=== PATIENT | female | born 1985 | race Caucasian/White ===

== ENCOUNTER 2022-04-09 01:34 | Emergency (ER) | payer SELFPAY ==
[~2022-04-09] VITALS: Ht 170.2 cm; Wt 86.0 kg
[2022-04-09 01:39] VITALS: BP 145/84
[2022-04-09] MEDS ORDERED: KETOROLAC 60 MG/2 ML VIAL. IM ONE (02:15)
--- NOTE | 2022-04-09 02:25 | PHYS DOC ---
Past History Past Surgical History: Other Additional Past Surgical Histo: cryo Alcohol Use: None General Adult EDM: Chief Complaint: SHOUDLER HPI: HPI: Patient is a 36-year-old female coming in via EMS for left neck, shoulder, back, and rib pain. Patient states she woke up with it yesterday and has been gradually getting worse. Has taken some ibuprofen and helps alleviate the pain. Patient denies any heavy lifting or falls. Patient states that she was feeling short of breath due to the pain, states its feels like is making her chest tight. Review of Systems: Review of Systems: All other systems within normal limits except for as noted in the HPI Current Medications: Current Meds: Current Medications Medications (Trade) Dose Ordered Sig/Charles Start Time Stop Time Status Last Admin Dose Admin Ketorolac Tromethamine (Toradol Im) 60 mg 1X ONCE 04/09/22 02:15 04/09/22 02:16 DC Lorazepam (Ativan Inj) 2 mg 1X ONCE 04/09/22 02:15 04/09/22 02:16 DC Allergies: Allergies: Allergies Coded Allergies Type Severity Reaction Last Updated Verified latex Allergy Unknown 04/09/22 Yes Physical Exam: PE: Constitutional: Well developed, well nourished, no acute distress, non-toxic appearance. [] HENT: Normocephalic, atraumatic, bilateral external ears normal, nose normal. [] Eyes: PERRLA, conjunctiva normal, no discharge. [] Neck: No rigidity, supple, no stridor. Tenderness over left base of neck, no C-spine tenderness [] Cardiovascular: Regular rate and rhythm, brisk cap refill [] Lungs & Thorax: Non labored symmetric respirations, no tachypnea or respiratory distress [] Abdomen: Soft, nondistended. Skin: Warm, dry, no erythema, no rash. [] Back: Unremarkable, tenderness over left trapezius, no point tenderness on spine Extremities: No deformities, range of motion grossly intact, no lower extremity edema [] Neurologic: Alert and oriented X 3, no focal deficits noted. [] Psychologic: Affect normal, judgement normal, mood normal. [] Current Patient Data: Vital Signs: Vital Signs Date Time Temp Pulse Resp B/P (MAP) Pulse Ox O2 Delivery O2 Flow Rate FiO2 04/09/22 01:39 97.5 95 18 145/84 (104) 98 Room Air EKG: EKG: [] Radiology/Procedures: Radiology/Procedures: Chest x-ray unremarkable [] Heart Score: C/O Chest Pain: No Risk Factors: Risk Factors: DM, Current or recent (<one month) smoker, HTN, HLP, family history of CAD, obesity. Risk Scores: Score 0 - 3: 2.5% MACE over next 6 weeks - Discharge Home Score 4 - 6: 20.3% MACE over next 6 weeks - Admit for Clinical Observation Score 7 - 10: 72.7% MACE over next 6 weeks - Early Invasive Strategies Course & Med Decision Making: Course & Med Decision Making Pertinent Labs and Imaging studies reviewed. (See chart for details) [] Dragon Disclaimer: Dragon Disclaimer: This electronic medical record was generated, in whole or in part, using a voice recognition dictation system. Departure Departure: Impression: Primary Impression: Muscle spasm Additional Impression: Hypokalemia Disposition: 01 HOME / SELF CARE / HOMELESS Condition: STABLE Patient Instructions: Hypokalemia BARB CLEMENS MD April 09, 2022 02:25
[2022-04-09 03:08] LABS: CALCIUM 8.8 mg/dL (8.5-10.1); CREATININE 0.6 mg/dL (0.6-1.0); GFR 112.5; POTASSIUM 3.4 mmol/L (3.5-5.1)
[2022-04-09 03:10] LABS: BASO # 0.1 x10^3/uL (0.0-0.2); BASO % 0 % (0-3); EOS # 0.4 x10^3/uL (0.0-0.7); EOS % 3 % (0-3); HEMATOCRIT 33.4 % (36.0-47.0); HEMOGLOBIN 10.9 g/dL (12.0-15.5); LYMPH # 1.3 x10^3/uL (1.0-4.8); LYMPH % 11 % (24-48); MEAN CORPUSCULAR HEMOGLOBIN 27 pg (25-35); MEAN CORPUSCULAR HGB CONC 33 g/dL (31-37); MEAN CORPUSCULAR VOLUME 83 fL (79-100); MONO # 0.8 x10^3/uL (0.0-1.1); MONO % 6 % (0-9); NEUT % 80 % (31-73); PLATELET COUNT 296 x10^3/uL (140-400); RED BLOOD COUNT 4.04 x10^6/uL (3.50-5.40); RED CELL DISTRIBUTION WIDTH 16.3 % (11.5-14.5); WHITE BLOOD COUNT 12.6 x10^3/uL (4.0-11.0)
[2022-04-09 03:13] LABS: ALBUMIN 2.6 g/dL (3.4-5.0); ALBUMIN/GLOBULIN RATIO 0.6 (1.0-1.7); MAGNESIUM 1.9 mg/dL (1.8-2.4); PHOSPHORUS 2.9 mg/dL (2.6-4.7); TOTAL BILIRUBIN 0.2 mg/dL (0.2-1.0)
[2022-04-09] MEDS ORDERED: POTASSIUM CHLORIDE 20 MEQ TABLET.ER. PO ONE (03:30)
--- NOTE | 2022-04-09 09:34 | RAD ---
XR CHEST 2V History: Left rib pain. Comparison: None. Technique: PA and lateral chest radiographs. Findings: The lungs are adequately and symmectrically inflated. There are minimal linear opacities in the left lung base. Pleural effusion or pneumothorax. The cardiomediastinal silhoutte and pulmonary vasculatur e are within normal limits. Soft tissues and osseous structures are unremarkable. Impression: 1. Minimal linear opacities in the left lung base may represent atelectasis. No rib fracture identif ied. Electronically signed by: Chay Osborne MD (04/09/2022 9:32 AM) [id number]
== END 2022-04-09 03:55 | disposition home or self-care (01) ==
LOC: ER 01:34
DX: M62.838 Other muscle spasm (principal); E87.6 Hypokalemia
CPT/HCPCS: 36415; 71046; 80053; 83735; 84100; 85025; 99284-25